=== PATIENT | female | born 1955 | race African-American/Black ===

== ENCOUNTER 2024-03-10 13:07 | Emergency (ER) | payer MEDICAID, OTHER ==
[~2024-03-10] VITALS: Ht 165.1 cm; Wt 77.0 kg
[~2024-03-10 13:07] MED LIST: AMLO10TA80 PO; APIX5TAB PO; FERR325T6 PO; GLIP5TAB22 PO; LIP40 PO; METO25TA6 PO; atorvastatin PO; metformin PO
[2024-03-10 13:09] VITALS: O2SAT 100
[2024-03-10 15:03] LABS: CLARITY URINE CLEAR (CLEAR); COLOR URINE YELLOW (YELLOW); GLUCOSE URINE 1+ (NEGATIVE); KETONES URINE NEGATIVE (NEGATIVE); LEUKOCYTE ESTERASE URINE NEGATIVE (NEGATIVE); NITRITE URINE NEGATIVE (NEGATIVE); OCCULT BLOOD URINE NEGATIVE (NEGATIVE); PH URINE 5.5 (4.5-8.0); PROTEIN URINE NEGATIVE (NEGATIVE); SPECIFIC GRAVITY URINE 1.013 (1.005-1.030); UROBILINOGEN URINE 0.2 E.U./dL (0.2-1.0)
[2024-03-10 15:54] LABS: BACTERIA URINE TRACE; RBC URINE NONE SEEN /hpf (0-2); SQUAMOUS EPITHELIAL CELL URINE RARE /lpf (RARE/1+); WBC URINE 0-2 /hpf (0-2)
[2024-03-10] MEDS: HYDROCODONE/ACETAMINOPHEN 5/325MG TABLET PO ONE (15:59)
[2024-03-10] MEDS ORDERED: LOSARTAN 25 MG TABLET PO ONE (16:15)
[2024-03-10] MEDS: LOSARTAN 50 MG TABLET PO NR (16:18)
[2024-03-10 17:30] VITALS: BP 174/74; PULSE 83; RESP 32; TEMP 98.2
== END 2024-03-10 17:32 | disposition home or self-care (01) ==
LOC: ER 14:17
DX: M25.551 Pain in right hip (principal); M25.561 Pain in right knee; I10 Essential (primary) hypertension; G47.00 Insomnia, unspecified; E11.9 Type 2 diabetes mellitus without complications
CPT/HCPCS: 72170; 73562; 81003; 99284